=== PATIENT | female | born 1960 | race Caucasian/White ===

== ENCOUNTER 2024-05-21 13:22 | Outpatient (AMB) | payer BC, SELFPAY ==
--- NOTE | 2024-05-21 13:39 | MHC.OFFWIV ---
Intake Vital Signs 05/21/24 13:41 Height 5 ft 1 in Weight 199 lb BMI 37.6 BP 108/82 Blood Pressure Location Lt brachial Position Sitting Pulse 109 H Pulse Source Pulse Oximeter Temp 98.8 F Temp Source Oral Pulse Oximetry (%) 98 Oxygen Delivery Method Room Air Intake Visit Reasons: EP Back ache Intake Note: pt c/o back pain. Started last week. Slip and fall. Center lower back Patient Tobacco Use Status: Never used Tobacco Allergies latex Allergy (Intermediate, Verified 05/21/24 13:51) Rash Do you need a note to return to daycare/school/sports/work: No HPI HPI Comments History of Present Illness Details Patient is a 63-year-old female complaining of bilateral low back pain after a slip and fall in her kitchen 1 week ago. She states that there was water on the floor and she slipped and fell on her right side. She states she has a large bruise on her right leg and her right forearm. She states she has had low back pain across both sides of her low back since then, she has been using Aleve and lidocaine patches and ice without much relief. She denies loss of control of her bladder or bowels. COUNTS INCLUDE 234 BEDS AT THE [facility] Social History Patient Tobacco Use Status: Never used Tobacco Review of Systems Const All systems reviewed & are unremarkable except as noted in HPI and below Physical Exam Vital Signs: Last Vital Signs Temp 98.8 F 05/21/24 13:41 Pulse 109 H 05/21/24 13:41 BP 108/82 05/21/24 13:41 Pulse Ox 98 05/21/24 13:41 Oxygen Delivery Method Room Air 05/21/24 13:41 BMI result Body Mass Index 37.6 Const General: cooperative, healthy appearing and comfortable Orientation/consciousness: patient oriented x3 HEENT Head: Yes normal to inspection and Yes normocephalic General nose exam: Normal external nose present Face and sinus: Yes normal facial exam Eyes General: appearance normal, both eyes and all related structures Resp Effort & Inspection: normal respiratory effort and able to speak in complete sentences Back/Spine/Pelvis Cervical Spine: cervical ROM normal and No Cervical spine tenderness Thoracic/Lumbar Spine: thoracic and lumbar spine normal to inspection, pain with thoraco-lumbar ROM, paraspinal muscle tenderness bilaterally, thoraco-lumbar spasm on the left greater than right, No thoracic spinal tenderness and No lumbar spinal tenderness Skin Other: Large area of ecchymosis on right lower extremity and right forearm, volar side, no signs of infection noted in either area Neuro General: patient oriented x3 Extrem Other: Straight leg raise test negative on right; Straight leg raise test negative on left; Reflexes normal ankle and knee bilaterally; motor strength normal bilaterally Assessment & Plan Assessment & Plan (1) Strain of muscle, fascia and tendon of lower back, initial encounter: Code(s): S39.012A - Strain of muscle, fascia and tendon of lower back, initial encounter Plan: Recommended she use meloxicam and cyclobenzaprine as needed for her pain, prescription sent to pharmacy. Also recommended continuing to using ice and Salonpas patches. If no improvement in her symptoms, she should follow up with her PCP for possible physical therapy. (2) Muscle spasm of back: Code(s): M62.830 - Muscle spasm of back Plan: see above Plan see above Medications: New meloxicam 7.5 mg PO DAILY 10 tabs 0RF cyclobenzaprine 5 mg PO Q8H PRN 10 tabs 0RF Muscle Spasm Coding Level of Care Code New Pt Level 3 (24871) Diagnoses Strain of muscle, fascia and tendon of lower back, initial encounter S39.012A Muscle spasm of back M62.830
[2024-05-21 13:41] VITALS: BP 108/82; PULSE 109; TEMP 37.1; O2SAT 98; BMI 37.6
== END 2024-05-21 14:17 | disposition home or self-care (01) ==
PROVIDERS: Visit Provider Physician Assistant
DX: S39.012A Strain of muscle, fascia and tendon of lower back, initial encounter (principal); M62.830 Muscle spasm of back

== ENCOUNTER → 2024-05-21 13:22 | Outpatient (BNVA) | payer BC, SELFPAY | DX: S39.012A Strain of muscle, fascia and tendon of lower back, initial encounter (principal); M62.830 Muscle spasm of back; W01.0XXA Fall on same level from slipping, tripping and stumbling without subsequent striking against object, initial encounter; Y93.9 Activity, unspecified; Y92.000 Kitchen of unspecified non-institutional (private) residence as the place of occurrence of the external cause; Y99.9 Unspecified external cause status ==

== ENCOUNTER 2024-06-26 07:20 | Outpatient (REF) | payer BC, SELFPAY ==
[2024-06-26 08:01] LABS: MANUAL DIFF FLAG NO
[2024-06-26 08:14] LABS: Basophils Percent Auto 0.1 % (0-2); Hematocrit 41.3 % (37.0-47.0); Hemoglobin 14.2 g/dl (12.0-16.0); Imm Gran Abs Auto 0.03 X10*3/uL (0.00-0.03); Imm Gran Pct Auto 0.3 % (0.0-0.4); Lymphocytes Absolute Auto 2.2 X10*3/uL (1.2-4.9); Lymphocytes Percent Auto 23.7 % (20-40); Mean Corpuscular HGB Conc 34.4 g/dl (31.0-35.0); Mean Corpuscular Hemoglobin 31.1 pg (27.0-33.0); Mean Corpuscular Volume 90.6 fL (80.0-98.0); Monocytes Absolute Auto 0.5 X10*3/uL (0.1-1.2); Neutrophils Absolute Auto 6.6 x10*3/uL (2.0-8.3); Neutrophils Percent Auto 70.9 % (45-73); Platelet Count 294 X10*3/uL (160-400); Red Blood Count 4.56 X10*6/uL (4.20-5.50); Red Cell Distribution Width 15.1 % (11.0-16.0); White Blood Count 9.4 X10*3/uL (4.8-10.8)
[2024-06-26 08:26] LABS: Estimated Average Glucose 108 mg/dL; Hemoglobin A1C 128.2061 umol/L; Hemoglobin A1c % 5.4 % (<6.0); Total Hemoglobin (HGBA1C) 3572.1264 umol/L
[2024-06-26 08:43] LABS: Parathyroid Hormone Intact 61.4 pg/mL (8.7-77.1)
[2024-06-26 08:49] LABS: Alanine Aminotransferase 62 U/L (0-31); Albumin Level 4.6 g/dL (3.5-5.0); Alkaline Phosphatase 87 U/L (39-117); Anion Gap 14 (12-20); Aspartate Amino Transferase 54 U/L (5-31); Bilirubin Total 0.4 mg/dL (0.0-1.0); Blood Urea Nitrogen 15 mg/dL (9-16); C Reactive Protein 0.15 mg/dL (< or = 0.50); Calcium 10.6 mg/dL (8.4-10.2); Carbon Dioxide 29 mmol/L (22-29); Chloride 103 mmol/L (96-108); Estimated Glomerular Filt Rate 60; Glucose Random 135 mg/dL (60-115); Iron 95 mcg/dL (30-160); Magnesium 2.1 mg/dL (1.6-2.6); Percent Iron Saturation 28 % (15-50); Phosphorus 2.8 mg/dL (2.7-4.5); Potassium 3.6 mmol/L (3.3-5.1); Sodium 142 mmol/L (135-145); Total Iron Binding Capacity 340 mcg/dL (228-428); Total Protein 7.6 g/dL (6.5-8.0); Unsaturated Iron Binding 245 ug/dL
[2024-06-26 09:01] LABS: Erythrocyte Sedimentation Rate 7 MM/HR (0-20)
[2024-06-26 09:03] LABS: Ferritin 117 ng/mL (10-250); Free T4 (Free Thyroxine) < 0.42 ng/dL (0.71-1.85); Thyroid Stimulating Hormone 38.55 uIU/mL (0.32-4.0); Vitamin D 25-OH Total 37.5 ng/mL (>30)
[2024-06-26 09:11] LABS: Folate 7.2 ng/mL (> or = 4.0); Vitamin B12 594 pg/mL (200-900)
[2024-06-28 16:48] LABS: Homocysteine 14.5 umol/L (<10.4)
[2024-07-01 15:24] LABS: Vitamin B6 7.6 ng/mL (2.1-21.7)
[2024-07-03 15:43] LABS: Vitamin B1 11 nmol/L (8-30)
== END 2024-06-26 07:21 | disposition home or self-care (01) ==
LOC: HO.LAB 07:20
PROVIDERS: Visit Provider Psychiatry & Neurology Psychiatry
DX: F32.9 Major depressive disorder, single episode, unspecified (principal); F41.9 Anxiety disorder, unspecified
CPT/HCPCS: 36415; 80053; 82306; 82550; 82607; 82728; 82746; 83036; 83090; 83540; 83735; 83970; 84100; 84207; 84425; 84439; 84443; 85025; 85652; 86140

== ENCOUNTER 2024-06-28 10:00 | Outpatient (RCR) | payer BC, SELFPAY ==
[2024-06-25 12:03] VITALS: BMI 37.1
[2024-06-25 12:04] VITALS: BP 144/92; PULSE 100; TEMP 36.6
--- NOTE | 2024-06-25 13:23 | PC.ADMIT ---
Patient is a 63 year old single female who was advised by a friend to attend [facility] d/t increased depression since her dog passed in March 2024 which she continues to grieve. She was tearful during the assessment when talking about her dog which she felt was like her baby. She has taken a BREANNE from work d/t symptoms of depression. 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 Patient is alert and oriented x4. Calm and cooperative. She presented with depressed mood and anxious affect. She denied SI, no HI. She was given a copy of her safety plan if needed. She described having an agitated depression and reports a history of depression however never feeling like she currently does. She denied any current or history of using any substances including alcohol and marijuana. Devika BP 146/92 P 100. Devika is on Effexor 375 mg daily. She gets prescription for two 150 mg tabs at [facility] and a 75 mg tab at [facility] outpatient pharmacy. She also reports she has not taken Levothyroxine 88 mcg in 1-2 months, last filled 05/02/24 for a 30 day supply. Stated she may have some at home. I told her to discuss this with Dr Liz and that lab work may be ordered. Per Devika her doctor won't refill Levothyroxine as she needs to be seen by her PCP. She reports the office is 50 minutes away from her which is not convenient. Looking for a PCP that is closer to where she lives. She also stated she lost Lunesa prescription and was not allowed refills d/t being controlled substance thus Ambien was filled instead temporarily. She has a Lunesa prescription that was filled 06/24/22 and is ready for p/u. Devika is aware. Dr Liz is aware of the above mentioned information.
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
--- NOTE | 2024-06-27 15:45 | HO.PHP ---
Client's case has been opened and reviewed in team.
--- NOTE | 2024-06-27 15:49 | HO.PHP ---
PHP admin, Zulma, informed the team that Devika will not be in attendance to program due to being sick. There were no safety concerns reported.
--- NOTE | 2024-06-28 10:22 | HO.PHP ---
[facility] staff member made a referral to [facility] for OP therapy for Devika Juan Carlos. [facility] staff member is awaiting a call with the scheduled appointment date and time.
--- NOTE | 2024-06-28 10:28 | PC.NURSE ---
New PCP Appointment at [facility]. [address]. [place], [place]. with Dr. Lali Serna. September 26, 2024 at 11:00 am. Office # [phone]. Call your previous PCP to transfer records over to [facility] prior to your appointment.
--- NOTE | 2024-06-28 13:16 | HO.PHP ---
PHP staff member received a voicemail from Manju with Devika's aftercare appointment for OP therapy. Devika's OP therapy intake appointment is scheduled for July 02, 2024 at 10 AM with Ernestine Rizvi at [address] [place] [address], in [place], [place].
--- NOTE | 2024-06-28 22:12 | HO.PHPPROGNO ---
Subjective Subjective Date of Service: 06/28/24 Reason For Visit: depression Interim History: Patient seen for follow-up, anticipating discharge at the end of program today.? Reports no acute issues or concerns. Medication compliant, medications well-tolerated. Denies any adverse effects.? Mood is stable.? Denies any hopelessness or SI. Denies thoughts of harming self or others at this time. Denies any aggressive ideation or HI. Denies any paranoia or AH or VH. Sleep, appetite, energy stable. Alert, oriented, in no acute distress. Calm, cooperative. Mood stable, affect appropriate. Speech normal. Thought process linear, coherent, more goal-directed. Thought content related to stressors, future-oriented, denies any helplessness, hopelessness or SI.? No aggressive ideation or HI. No paranoia or delusional content elicited. No evidence of psychosis. Insight and judgment fair-good. Discharge from [facility] Continue regular medications Refills sent to pharmacy Will defer further medication management to outpatient provider *Safety plan reviewed *Discharge diagnoses, treatment course, discharge plan have been reviewed with patient (including medication regime, medication management, potential side effects) as well as treatment rationale were also revisited *Discharge paperwork signed and given to patient, copy sent for scanning to chart Medication Compliance: Yes Side effects from medications: No Attending Groups: Yes Review of Systems Acute medical concerns: No Diagnostics Vital Signs (24Hr): BMI result Body Mass Index 37.1 Assessment & Plan Patient educated on: diagnosis and medication risk/benefits Informed Consent: understands Reason for contiued partial hosp. stay Substantial Risk for: stable for discharge and med/psych decompensation Certification I certify that partial hospital treatment is medically necessary due to the symptoms and problems resulting from the patient's mental illness and the failure to treat the patient at the partial hospital level of care would likely result in the patient requiring inpatient psychiatric care which could not be prevented at a less intensive level of care. Total time managing care of this patient today __30__ minutes. Discharge Plan Discharge Attending provider: Anisa Liz Additional Instructions: New PCP Appointment at [facility]. [address]. [place], [place] with Dr. Lali Serna. September 26, 2024 at 11:00 am. Office # [phone]. Call your previous PCP to transfer records over to [facility] prior to your appointment. Medications: New cholecalciferol (vitamin D3) [Vitamin D3] 125 mcg (5,000 unit) tablet 125 mcg PO DAILY Qty: 30 1RF Continued eszopiclone [Lunesta] 3 mg Tablet 3 mg PO BEDTIME Patient Comments: Patient reports that she had lost her prescription for Lunesta and pharmacy would not refill as it was a controlled substance thus her prescriber prescribed Ambien temporarily. Pharmacy just refilled the Lunesta on 06/24/24. Patient aware that it is ready to be picked up. zolpidem [Ambien] 10 mg Tablet 10 mg PO BEDTIME PRN (Reason: Insomnia) Rx Instructions: Patient reports temporarily put on Ambien until she can fill Lunesta. 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 aripiprazole 2 mg tablet 2 mg PO QAM levothyroxine 88 mcg Capsule 88 mcg PO DAILY 30 Days Qty: 30 1RF meloxicam 7.5 mg tablet 7.5 mg PO DAILY 30 Days Qty: 30 0RF quetiapine 100 mg tablet 50 - 100 mg PO BEDTIME Rx Instructions: Take one half to one tab at bedtime as directed. venlafaxine 75 mg capsule,extended release 24hr 75 mg PO DAILY Rx Instructions: Take with two 150 mg tabs for total dose of 375 mg daily. venlafaxine 150 mg capsule,extended release 24hr 300 mg PO DAILY Stand Alone Forms: Patient Portal Discharge page Patient Education: Depression (DC), Grief and Loss (DC), Hypothyroidism (DC) Print Language: Gabonese
== END 2024-06-28 23:59 | disposition home or self-care (01) ==
LOC: HO.PHPA 10:00
PROVIDERS: Visit Provider Psychiatry & Neurology Psychiatry
DX: F33.9 Major depressive disorder, recurrent, unspecified (principal); F41.8 Other specified anxiety disorders; G47.00 Insomnia, unspecified; Z63.4 Disappearance and death of family member; Z79.899 Other long term (current) drug therapy
CPT/HCPCS: 90791; 90853